=== PATIENT | female | born 1990 | race Caucasian/White ===

== ENCOUNTER 2017-02-08 01:45 | Emergency (ER) | payer OTHER ==
[~2017-02-08 01:45] MED LIST: PRAMET FA TAB1 EA PO
[2017-02-08 04:18] LABS: HEMOGLOBIN 14.2 gm/dl (12.3-15.3); RED BLOOD COUNT 4.77 M/UL (4.00-5.10); WHITE BLOOD COUNT 15.8 K/UL (4.5-11.0)
[2017-02-08 04:51] LABS: BUN/CREATININE RATIO 20 (0-10)
== END 2017-02-08 07:35 | disposition home or self-care (01) ==
LOC: ER1 01:45
PROVIDERS: Emergency Medicine
DX: S36.113A Laceration of liver, unspecified degree, initial encounter (principal); R07.89 Other chest pain; R06.2 Wheezing; V49.40XA Driver injured in collision with unspecified motor vehicles in traffic accident, initial encounter; Y93.89 Activity, other specified; Y92.410 Unspecified street and highway as the place of occurrence of the external cause
CPT/HCPCS: 36415; 70450; 71010; 71260; 72125; 80053; 80307; 81001; 83690; 84703; 85025; 87086; 93005; 96360; 99291; G0480; J7050; Q9962

== ENCOUNTER 2020-11-13 17:22 | Emergency (ER) | payer OTHER ==
[2020-11-13] MEDS ORDERED: KEFLEX CAP 500500 MG PO (22:21)
[2020-11-13] MEDS ORDERED: LODINE CAP 300300 MG PO (22:21)
== END 2020-11-13 22:27 | disposition home or self-care (01) ==
LOC: ER1 17:22
DX: S61.432A Puncture wound without foreign body of left hand, initial encounter (principal); Z23 Encounter for immunization; F17.210 Nicotine dependence, cigarettes, uncomplicated; W26.8XXA Contact with other sharp object(s), not elsewhere classified, initial encounter; Y92.009 Unspecified place in unspecified non-institutional (private) residence as the place of occurrence of the external cause
CPT/HCPCS: 90471; 90715; 99283